=== PATIENT | male | born 1945 | race Caucasian/White ===

== ENCOUNTER 2017-12-05 09:41 | Emergency (ER) | payer OTHER ==
[~2017-12-05] VITALS: Ht 180.3 cm; Wt 89.6 kg
[2017-12-05 11:17] LABS: BASOPHIL (%) 0.5 % (0-1); EOSINOPHIL (%) 0.7 % (0-5); EOSINOPHIL COUNT 0.1 K/uL (0-0.3); HEMATOCRIT 38.9 % (38.0-50.0); HEMOGLOBIN 13.2 G/DL (12.5-16.6); IMMATURE GRANULOCYTE (%) 0.5 % (0.0-0.7); LYMPHOCYTE (%) 12.7 % (15-42); LYMPHOCYTE COUNT 1.1 K/uL (1.0-2.8); MCH 30.8 PG (29.0-34.0); MCHC 33.9 G/DL (30.0-36.0); MCV 90.9 FL (86-99); MONOCYTE (%) 5.7 % (3-12); MONOCYTE COUNT 0.5 K/uL (0-0.8); NEUTROPHIL (%) 79.9 % (45-76); PLATELET COUNT 192 K/uL (156-360); RBC DIS.WIDTH-CV 14.6 % (11.8-14.6); RBC DIS.WIDTH-SD 49.1 % (39-53); RED BLOOD COUNT 4.28 M/uL (4.00-5.50); WHITE BLOOD COUNT 8.8 K/uL (4.1-10.2)
[2017-12-05 11:22] LABS: INTER. NORMALIZED RATIO 1.8
[2017-12-05 11:25] LABS: CHLORIDE 103 mEq/L (99-109); POTASSIUM 4.7 mEq/L (3.7-5.4); PTT 41.3 SEC (25-37); SODIUM 136 mEq/L (136-147)
[2017-12-05 11:28] LABS: GLUCOSE 87 mg/dL (70-99); TOTAL PROTEIN 6.5 g/dL (6.4-8.3)
[2017-12-05 11:30] LABS: TOTAL BILIRUBIN 0.5 mg/dL (0.0-1.0)
[2017-12-05 11:31] LABS: ALKALINE PHOSPHATASE 73 IU/L (3-129); SERUM ETHYL ALCOHOL 32 mg/dL
[2017-12-05 11:32] LABS: CREATININE 0.9 mg/dL (0.6-1.3); GFR ESTIMATE (CALCULATED) > 59 mL/min/ (58.99-99999)
[2017-12-05 11:33] LABS: AST (GOT) 30 IU/L (2-34); UREA NITROGEN (BUN) 12 mg/dL (9-23)
[2017-12-05 11:34] LABS: ALT (GPT) 15 IU/L (3-49)
[2017-12-05 11:35] LABS: CREATINE KINASE 559 IU/L (1-294); TOTAL CK 559 IU/L (1-294)
[2017-12-05 11:37] LABS: TROP-I INTERPRETATION NEGATIVE; TROPONIN-I < 0.01 ng/mL (0.0-0.30)
[2017-12-05 11:40] LABS: CK-MB 10.9 ng/mL (0.0-4.9); CKMB RELATIVE INDEX 1.9 (0.0-3.9)
[2017-12-05 16:14] VITALS: BP 138/81
== END 2017-12-05 16:15 | disposition home or self-care (01) ==
LOC: EME 09:41
PROVIDERS: Emergency Medicine
DX: S05.11XA Contusion of eyeball and orbital tissues, right eye, initial encounter (principal); S60.222A Contusion of left hand, initial encounter; S61.411A Laceration without foreign body of right hand, initial encounter; S60.221A Contusion of right hand, initial encounter; S51.811A Laceration without foreign body of right forearm, initial encounter; S61.511A Laceration without foreign body of right wrist, initial encounter; G89.29 Other chronic pain; Z86.73 Personal history of transient ischemic attack (TIA), and cerebral infarction without residual deficits; I10 Essential (primary) hypertension; J45.909 Unspecified asthma, uncomplicated; E53.8 Deficiency of other specified B group vitamins; F17.200 Nicotine dependence, unspecified, uncomplicated; Z60.2 Problems related to living alone; Z72.89 Other problems related to lifestyle; W19.XXXA Unspecified fall, initial encounter
CPT/HCPCS: 70450; 70486; 71046; 73090; 73110; 73130; 80053; 82550; 82550 91; 82553; 83735; 84484; 85025; 85610; 85730; 93005; 99281; 99284; G0480; J7030